=== PATIENT | female | born 1975 | race Caucasian/White ===

== ENCOUNTER 2023-12-08 12:19 | Day surgery (SDC) | payer BC ==
[~2023-12-08] VITALS: Ht 160 cm; Wt 68.5 kg
[2023-12-08] MEDS: NS 1,000 ML IV ONE (06:00)
[~2023-12-08 12:19] MED LIST: propofoL 200 MG/20 ML VIAL As Ordered ONE
[2023-12-08] MEDS ORDERED: OMEP-173 PO (12:40)
[2023-12-08] MEDS ORDERED: LIDOCAINE 2% 100MG/5ML SDV (FOR ANES.) As Ordered ONE (13:15)
[2023-12-08] MEDS ORDERED: fentaNYL 100 MCG/2 ML INJECTION As Ordered ONE (13:16)
[2023-12-08 14:07] VITALS: TEMP 97.9
[2023-12-08 14:26] VITALS: BP 131/85; O2SAT 100
== END 2023-12-08 14:38 | disposition home or self-care (01) ==
LOC: M OPP 12:19
PROVIDERS: ATTEND Internal Medicine Gastroenterology
DX: Z12.11 Encounter for screening for malignant neoplasm of colon (principal); K63.3 Ulcer of intestine; K22.2 Esophageal obstruction; K20.0 Eosinophilic esophagitis; R13.14 Dysphagia, pharyngoesophageal phase; R12 Heartburn
CPT/HCPCS: 43239; 43249; 45380; 88305; J3010